=== PATIENT | male | born 2000 | race American Indian/Alaskan Native ===

== ENCOUNTER 2018-04-24 23:59 | Emergency (ER) | payer MEDICAID, OTHER ==
[2018-04-25 01:16] LABS: Amorphous Crystals,Urine 1+; Bilirubin,Urine NEG (Negative); Blood,Urine NEG (Negative); Color,Urine Yellow (Yellow); Mucus,Urine FEW /HPF; Urobilinogen,Urine < 2.0 mg/dL (<2.0)
[2018-04-25 01:19] LABS: Basophils % (Auto) 0.4 % (0.0-1.8); Eosinophils % (Auto) 0.4 % (0.0-4.3); Hematocrit 43.7 % (35.5-45.6); Hemoglobin 14.9 gm/dl (11.8-15.2); Lymphocytes # (Auto) 1.4 K/mm3 (1.2-5.4); Lymphocytes % (Auto) 31.2 % (13.4-35.0); Mean Corpuscular HGB Conc 34 % (32-34); Mean Corpuscular Volume 83 fl (84-94); Monocytes # (Auto) 0.4 K/mm3 (0.0-0.8); Monocytes % (Auto) 10.1 % (0.0-7.3); Platelet Count 135 K/mm3 (140-440); Red Blood Count 5.29 M/mm3 (3.65-5.03); Red Cell Distribution Width 13.6 % (13.2-15.2)
[2018-04-25 01:20] LABS: WBC,Urine < 1.0 /HPF (0.0-6.0)
[2018-04-25 01:29] LABS: Amphetamine Screen,Urine PRESUMPTIVE NEGATIVE; Benzodiazepines Screen,Urine PRESUMPTIVE NEGATIVE; Cocaine Screen,Urine PRESUMPTIVE NEGATIVE; Methadone Screen,Urine PRESUMPTIVE NEGATIVE; Opiate Screen,Urine PRESUMPTIVE NEGATIVE
[2018-04-25 01:40] LABS: BUN/Creatinine Ratio 6; Blood Urea Nitrogen 6 mg/dL (9-20); Hemolysis Index 9
[2018-04-25 01:49] LABS: Cannabinoid Screen,Urine PRESUMPTIVE POSITIVE
--- NOTE | 2018-04-25 02:57 | Emergency Department Report ---
HPI - General Chief Complaint: Psych Time Seen by Provider: 04/25/18 02:44 - HPI HPI: Room 18 The patient is a 17-year-old male presenting with a chief complaint of insomnia and disorganized thoughts. Patient has history of depression and anxiety but fox s been off his medication (trazodone) since 2017 secondary to loss of insurance. Family states for the past 4-5 days patient has not been in to sleep and she is noticed he's began having disorganized thoughts. When asked to give an example family states the patient told her to "watch him or someone was going to start shooting at him." She states the patient's thoughts are racing and sometimes j umbled. Patient denies suicidal or homicidal ideations. Patient denies auditory or visual hallucinations Location: Mental health Duration: 4-5 days Quality: Disorganized Severity: Moderate Modifying factors: [see above] Context: [see above] Mode of transportation: [not driving] ED Past Medical Hx - Past Medical History Hx Psychiatric Treatment: Yes (Manic Depression, Anxiety) Additional medical history: sleeping disorder - Surgical History Past Surgical History?: No - Family History Family history: no significant - Social History Smoking Status: Current Some Day Smoker Substance Use Type: None (denies illicit drug use) - Medications Home Medications: Home Medications Medication Instructions Recorded Confirmed Last Taken Type Ondansetron [Zofran Odt] 4 mg PO TID #6 tab.rapdis 12/02/14 Unknown Rx Zolpidem [Ambien] 5 mg PO QHS PRN #10 tablet 04/25/18 Unknown Rx ED Review of Systems ROS: Stated complaint: ANXIETY Other details as noted in HPI Constitutional: no symptoms reported Eyes: denies: eye pain ENT: denies: throat pain Respiratory: no symptoms reported Cardiovascular: denies: chest pain Endocrine: no symptoms reported Gastrointestinal: denies: abdominal pain Genitourinary: denies: dysuria Musculoskeletal: denies: back pain Neurological: denies: headache Psychiatric: other (insomnia). denies: auditory hallucinations, visual hallucinations, homicidal thoughts, suicidal thoughts Physical Exam - Physical Exam Vital Signs: Vital Signs 04/25/18 00:29 Temperature 98.4 F Pulse Rate 84 Respiratory 18 Rate Blood Pressure 145/94 O2 Sat by Pulse 99 Oximetry Physical Exam: GENERAL: The patient is well-developed well-nourished []. [] HEENT: Normocephalic. Atraumatic. Extraocular motions are intact. Patient has moist mucous membranes. NECK: Supple. Trachea midline CHEST/LUNGS: Clear to auscultation. There is no respiratory distress noted. HEART/CARDIOVASCULAR: Regular. There is no tachycardia. There is no gallop rub or murmur. ABDOMEN: Abdomen is soft, nontender. Patient has normal bowel sounds. There is no abdominal distention. SKIN: There is no rash. There is no edema. There is no diaphoresis. NEURO: The patient is awake, alert, and oriented. The patient is cooperative. The patient has no focal neurologic deficits. The patient has normal speech. Cranial nerves II through XII grossly intact, no drift MUSCULOSKELETAL: There is no evidence of acute injury. ED Course Vital Signs 04/25/18 00:29 Temperature 98.4 F Pulse Rate 84 Respiratory 18 Rate Blood Pressure 145/94 O2 Sat by Pulse 99 Oximetry - Consultations Consultation #1: 04/25/18 05:32 Case discussed with mental health project management consultant Luis Carlos-patient will be given referral as an outpatient to the [facility] ED Medical Decision Making - Lab Data Result diagrams: 04/25/18 00:53 04/25/18 00:53 Laboratory Tests 04/25/18 04/25/18 04/25/18 00:46 00:46 00:53 WBC RBC Hgb Hct MCV MCH MCHC RDW Plt Count Lymph % (Auto) [place] % (Auto) Eos % (Auto) Baso % (Auto) Lymph # [place] # Eos # Baso # Seg Neutrophils % Seg Neutrophils # Sodium Potassium Chloride Carbon Dioxide Anion Gap BUN Creatinine Estimated GFR BUN/Creatinine Ratio Glucose Calcium Urine Color Yellow Urine Turbidity Cloudy Urine pH 7.0 Ur Specific [place] 1.024 Urine Protein 30 mg/dl Urine Glucose (UA) Neg Urine Ketones 20 Urine Blood Neg Urine Nitrite Neg Urine Bilirubin Neg Urine Urobilinogen < 2.0 Ur Leukocyte Esterase Neg Urine WBC (Auto) < 1.0 Urine RBC (Auto) 1.0 Amorphous Crystals 1+ Urine Mucus Few Salicylates < 0.3 L Urine Opiates Screen Presumptive negative Urine Methadone Screen Presumptive negative Acetaminophen Ur Barbiturates Screen Presumptive negative Ur Phencyclidine Scrn Presumptive negative Ur Amphetamines Screen Presumptive negative U Benzodiazepines Scrn Presumptive negative Urine Cocaine Screen Presumptive negative U Marijuana (THC) Screen Presumptive positive Drugs of Abuse Note Disclamer Plasma/Serum Alcohol 04/25/18 04/25/18 04/25/18 00:53 00:53 00:53 WBC RBC Hgb Hct MCV MCH MCHC RDW Plt Count Lymph % (Auto) [place] % (Auto) Eos % (Auto) Baso % (Auto) Lymph # [place] # Eos # Baso # Seg Neutrophils % Seg Neutrophils # Sodium 138 Potassium 3.5 L Chloride 99.9 Carbon Dioxide 25 Anion Gap 17 BUN 6 L Creatinine 1.0 Estimated GFR > 60 BUN/Creatinine Ratio 6 Glucose 181 H Calcium 9.0 Urine Color Urine Turbidity Urine pH Ur Specific [place] Urine Protein Urine Glucose (UA) Urine Ketones Urine Blood Urine Nitrite Urine Bilirubin Urine Urobilinogen Ur Leukocyte Esterase Urine WBC (Auto) Urine RBC (Auto) Amorphous Crystals Urine Mucus Salicylates Urine Opiates Screen Urine Methadone Screen Acetaminophen < 5.0 L Ur Barbiturates Screen Ur Phencyclidine Scrn Ur Amphetamines Screen U Benzodiazepines Scrn Urine Cocaine Screen U Marijuana (THC) Screen Drugs of Abuse Note Plasma/Serum Alcohol < 0.01 04/25/18 00:53 WBC 4.4 L RBC 5.29 H Hgb 14.9 Hct 43.7 MCV 83 L MCH 28 MCHC 34 RDW 13.6 Plt Count 135 L Lymph % (Auto) 31.2 [place] % (Auto) 10.1 H Eos % (Auto) 0.4 Baso % (Auto) 0.4 Lymph # 1.4 [place] # 0.4 Eos # 0.0 Baso # 0.0 Seg Neutrophils % 57.9 Seg Neutrophils # 2.5 Sodium Potassium Chloride Carbon Dioxide Anion Gap BUN Creatinine Estimated GFR BUN/Creatinine Ratio Glucose Calcium Urine Color Urine Turbidity Urine pH Ur Specific [place] Urine Protein Urine Glucose (UA) Urine Ketones Urine Blood Urine Nitrite Urine Bilirubin Urine Urobilinogen Ur Leukocyte Esterase Urine WBC (Auto) Urine RBC (Auto) Amorphous Crystals Urine Mucus Salicylates Urine Opiates Screen Urine Methadone Screen Acetaminophen Ur Barbiturates Screen Ur Phencyclidine Scrn Ur Amphetamines Screen U Benzodiazepines Scrn Urine Cocaine Screen U Marijuana (THC) Screen Drugs of Abuse Note Plasma/Serum Alcohol - Differential Diagnosis anxiety, insomnia, samina Critical care attestation.: If time is entered above; I have spent that time in minutes in the direct care of this critically ill patient, excluding procedure time. ED Disposition Clinical Impression: Insomnia Disposition: DC-01 TO HOME OR SELFCARE Is pt being admited?: No Does the pt Need Aspirin: No Condition: Stable Additional Instructions: Return to the emergency department immediately should you develop worsening sym ptoms, fever, inability to tolerate food or liquid or any other concerns. Prescriptions: Zolpidem [Ambien] 5 mg PO QHS PRN #10 tablet PRN Reason: Sleep Referrals: [facility] [Outside] - [facility] Time of Disposition: 05:33
[2018-04-25] MEDS ORDERED: AMBIEN PO ONE (05:48)
[2018-04-25 06:02] VITALS: BP 140/84
== END 2018-04-25 06:01 | disposition home or self-care (01) ==
LOC: ED 23:59
DX: G47.00 Insomnia, unspecified (principal); F31.9 Bipolar disorder, unspecified; F17.200 Nicotine dependence, unspecified, uncomplicated; F41.9 Anxiety disorder, unspecified; Z79.899 Other long term (current) drug therapy
CPT/HCPCS: 36415; 80048; 80307; 81001; 85025; 99284; G0480; 80320

== ENCOUNTER 2018-04-25 19:26 | Emergency (ER) | payer SELFPAY ==
--- NOTE | 2018-04-26 00:02 | Emergency Department Report ---
ED Psych HPI - General Chief Complaint: Psych Stated Complaint: ANXIETY Time Seen by Provider: 04/25/18 20:01 Source: patient Mode of arrival: Ambulatory - History of Present Illness Initial Comments: Patient is a 17-year-old -[place] male who was here yesterday for insomnia. Parents brought him in because he is having disorganized thoughts and increased paranoia. Patient was given a prescription for Ambien. Patient has these issues once before partially year ago after taking a synthetic marijuana. Patient currently is having a hard time giving a history and does have some flight of ideas. He states he is not having any homicidal suicidal ideations at this time. - Related Data Previous Rx's Medication Instructions Recorded Last Taken Type Ondansetron [Zofran Odt] 4 mg PO TID #6 tab.rapdis 12/02/14 Unknown Rx Zolpidem [Ambien] 5 mg PO QHS PRN #10 tablet 04/25/18 Unknown Rx Allergies Allergy/AdvReac Type Severity Reaction Status Date / Time No Known Allergies Allergy Verified 04/25/18 19:43 ED Review of Systems ROS: Stated complaint: ANXIETY Other details as noted in HPI Comment: All other systems reviewed and negative ED Past Medical Hx - Past Medical History Previous Medical History?: Yes Hx Psychiatric Treatment: Yes (Manic Depression, Anxiety) Additional medical history: sleeping disorder - Surgical History Past Surgical History?: No - Social History Smoking Status: Current Every Day Smoker Substance Use Type: None - Medications Home Medications: Home Medications Medication Instructions Recorded Confirmed Last Taken Type Ondansetron [Zofran Odt] 4 mg PO TID #6 tab.rapdis 12/02/14 04/25/18 Unknown Rx Zolpidem [Ambien] 5 mg PO QHS PRN #10 tablet 04/25/18 04/25/18 Unknown Rx ED Physical Exam - General Limitations: No Limitations General appearance: alert, in no apparent distress, anxious - Head Head exam: Present: atraumatic, normocephalic - Eye Eye exam: Present: normal appearance - ENT ENT exam: Present: mucous membranes moist - Neck Neck exam: Present: normal inspection - Respiratory Respiratory exam: Present: normal lung sounds bilaterally. Absent: respiratory distress, wheezes, rales, rhonchi - Cardiovascular Cardiovascular Exam: Present: regular rate, normal rhythm. Absent: systolic murmur, diastolic murmur, rubs, gallop - GI/Abdominal GI/Abdominal exam: Present: soft, normal bowel sounds. Absent: distended, tenderness, guarding, rebound - Rectal Rectal exam: Present: deferred - Extremities Exam Extremities exam: Present: normal inspection - Back Exam Back exam: Present: normal inspection - Neurological Exam Neurological exam: Present: alert, oriented X3 - Psychiatric Psychiatric exam: Present: normal affect, normal mood - Skin Skin exam: Present: warm, dry, intact, normal color. Absent: rash ED Course Vital Signs 04/25/18 04/25/18 19:50 21:02 Temperature 98.5 F 98.5 F Pulse Rate 71 77 Respiratory 18 18 Rate Blood Pressure 135/88 Blood Pressure 146/81 [Right] O2 Sat by Pulse 99 99 Oximetry ED Medical Decision Making - Medical Decision Making Patient's to be placed on 1013 and be evaluated for psychiatric placement. Patient is having flight of ideas and paranoid disorganized thoughts. Critical care attestation.: If time is entered above; I have spent that time in minutes in the direct care of this critically ill patient, excluding procedure time. ED Disposition Clinical Impression: Medical clearance for psychiatric admission, Paranoia, Insomnia Disposition: DC/TX-65 PSY HOSP/PSY UNIT Is pt being admited?: No Does the pt Need Aspirin: No Condition: Stable Time of Disposition: 00:02
[2018-04-26] MEDS ORDERED: BENADRYL PO ONE (08:19)
[2018-04-26] MEDS ORDERED: ATIVAN IM ONE (10:27)
[2018-04-26] MEDS ORDERED: GEODON IM ONE ×2 (10:28→16:41)
[2018-04-26 10:45] LABS: Bilirubin,Urine NEG (Negative); Blood,Urine NEG (Negative); Color,Urine Straw (Yellow); Protein,Urine <15 mg/dL mg/dL (Negative); RBC,Urine < 1.0 /HPF (0.0-6.0); Urobilinogen,Urine < 2.0 mg/dL (<2.0); WBC,Urine < 1.0 /HPF (0.0-6.0)
[2018-04-26 10:59] LABS: Amphetamine Screen,Urine PRESUMPTIVE NEGATIVE; Benzodiazepines Screen,Urine PRESUMPTIVE NEGATIVE; Cocaine Screen,Urine PRESUMPTIVE NEGATIVE; Methadone Screen,Urine PRESUMPTIVE NEGATIVE; Opiate Screen,Urine PRESUMPTIVE NEGATIVE
[2018-04-26 11:40] LABS: Cannabinoid Screen,Urine PRESUMPTIVE POSITIVE
[2018-04-26 12:14] LABS: Basophils % (Auto) 0.4 % (0.0-1.8); Eosinophils % (Auto) 0.2 % (0.0-4.3); Hematocrit 47.6 % (35.5-45.6); Hemoglobin 15.8 gm/dl (11.8-15.2); Lymphocytes % (Auto) 23.6 % (13.4-35.0); Mean Corpuscular HGB Conc 33 % (32-34); Mean Corpuscular Volume 84 fl (84-94); Monocytes # (Auto) 0.4 K/mm3 (0.0-0.8); Platelet Count 149 K/mm3 (140-440); Red Blood Count 5.66 M/mm3 (3.65-5.03); Red Cell Distribution Width 13.9 % (13.2-15.2)
[2018-04-26 12:27] LABS: BUN/Creatinine Ratio 8; Blood Urea Nitrogen 7 mg/dL (9-20); Calcium 9.6 mg/dL (8.4-10.2); Hemolysis Index 13
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
[2018-04-26] MEDS ORDERED: WATER FOR INJ (PF) ONE (16:41)
[2018-04-26] MEDS: VISTARIL PO SCH ×2 (17:00→20:01)
[2018-04-26] MEDS: PAXIL PO SCH ×2 (17:03→18:53)
[2018-04-27] MEDS ORDERED: BENADRYL PO ONE ×2 (03:22)
[2018-04-27] MEDS: VISTARIL PO SCH ×3 (07:43→20:40)
[2018-04-27] MEDS ORDERED: BENADRYL IM ONE (10:50)
[2018-04-27] MEDS ORDERED: BENADRYL ONE (10:54)
[2018-04-27] MEDS: PAXIL PO SCH (11:11)
[2018-04-27] MEDS ORDERED: GEODON IM ONE (11:59)
[2018-04-27] MEDS ORDERED: WATER FOR INJ Sterile (PF) 10 ML ONE (12:00)
--- NOTE | 2018-04-27 14:21 | Progress Note ---
Subjective - Reason for Consult Consult date: 04/27/18 Reason for consult: Psychiatric Follow-up Evaluation - Chief Complaint Chief complaint: "Not too good" Patient is a 17-year-old -Citizen Of [place] male who presented to the emergency room for bizarre behavior. The patient was seen 24 hours prior for insomnia in the ER. Today the patient is anxious and paranoid during the assessment. It took him several minutes to talk with the provider about his concerns. Patient can be seen pacing back and forth. Mood instability noted. Patient endorses auditory hallucinations of Nolan telling him to stay strong. Patient denies VH's. Patient reports appropriate appetite and decrease sleep. Per RNJacqui, patient's mom state that he responds well to Zyprexa and Trazodone. Mental Status Exam - Vital signs Last Vital Signs Temp 99.7 F H 04/27/18 08:00 Pulse 108 H 04/27/18 08:00 Resp 18 04/27/18 08:00 BP 134/77 04/27/18 08:00 Pulse Ox 99 04/27/18 08:00 - Exam Narrative exam: Mental Status Exam Appearance: anxious Behavior: regular eye contact Speech: regular rate and tone Mood: " not too good"; anxious, paranoid Affect: flat Thought Process: circumstantial Thought Content: denies SI/HI's; + paranoid delusions toward staff and auditory hallucinations of Nolan. Denies VH's Motor Activity: ambulatory Cognition: A/O x3 Insight: variable to fair Judgment: fair Assessment and Plan Impression: PTSD. Unspecified Anxiety DO. Psychosis Unspecified. Today the patient was anxious and paranoid during the assessment. Also, patient endorses auditory hallucinations of Nolan telling him to stay strong. Denies VH's. DDx: MDD with psychotic features Recommendation/Plan: 1. Reevaluate 1013 in 24 hours. 2. Continue Paxil 20 mg PO daily for Anxiety/PTSD. Discussed possible suicidality/Medication induced samina with the patient reference Paxil. 3. Start Zyprexa 5mg po QHS mood/psychosis. Discussed metabolic side effects of medications. Patient verbalizes understanding. Disposition: Will refer to inpatient psychiatric services. Staffed with Dr. Jesusita Scanlon.
[2018-04-27] MEDS ORDERED: ATIVAN IM ONE (16:23)
[2018-04-27] MEDS ORDERED: ATIVAN ONE (16:26)
[2018-04-27] MEDS ORDERED: ATIVAN IV ONE (23:04)
[2018-04-28] MEDS: VISTARIL PO SCH ×3 (09:05→20:53)
[2018-04-28] MEDS: PAXIL PO SCH ×2 (09:06→20:48)
[2018-04-28] MEDS ORDERED: HALDOL IM PRN (09:26)
[2018-04-28] MEDS ORDERED: GEODON IM ONE (09:29)
[2018-04-28] MEDS ORDERED: ATIVAN IM ONE ×2 (09:30→20:15)
[2018-04-28] MEDS ORDERED: WATER FOR INJ (PF) ONE (09:36)
--- NOTE | 2018-04-28 10:09 | Progress Note ---
Subjective - Reason for Consult Consult date: 04/28/18 Reason for consult: Psychiatry Follow-up - Chief Complaint Chief complaint: "It's not right" 17-year-old -Syrian male who presented to the emergency room for bizarre behavior. Today the patient is paranoid during the assessment. The patient's presentation is different than my previous assessment (04/26/2018). The patient is hyper buddhist and had to be asked several times the same questions to get a response from him, possibly responding to some type of stimuli. He had to be redirected to keep him on topic. He denies SI/HI's and AVH's. No indications of side effects of his medications. Mental Status Exam - Vital signs Last Vital Signs Temp 98.6 F 04/28/18 09:11 Pulse 137 H 04/28/18 09:11 Resp 11 L 04/28/18 09:11 BP 136/88 04/28/18 09:11 Pulse Ox 99 04/28/18 09:11 - Exam Narrative exam: MSE: Appearance: calm Behavior: regular eye contact Speech: regular rate and tone Mood: preoccupied Affect: flat Thought Process: somewhat disorganized Thought Content: denies SI/HI's and AVH's, hyper buddhist, paranoia Motor Activity: ambulatory Cognition: A/O x3 Insight: poor Judgment: poor Assessment and Plan Impression: PTSD. Unspecified Anxiety DO. Additional Dx: Unspecified Psychosis. Today the patient is paranoid during the assessment. DDx: MDD, Bipolar DO with psychosis Recommendation/Plan: Continue 1013, Paxil 20 mg PO daily for Anxiety/PTSD, and Zyprexa 5 mg PO HS for psychosis/mood. Discussed possible suicidality/Medication induced samina with the patient reference Paxil. Attempted to discuss possible metabolic side effects of Zyprexa with the patient. Dispo: The patient was referred to inpatient psy services Will staff with Dr Barrientos.
[2018-04-28] MEDS ORDERED: ATIVAN ONE (20:51)
[2018-04-29] MEDS ORDERED: GEODON IM ONE ×2 (07:50→08:20)
[2018-04-29] MEDS: VISTARIL PO SCH ×3 (09:00→20:31)
[2018-04-29] MEDS: PAXIL PO SCH (10:02)
--- NOTE | 2018-04-29 14:49 | Progress Note ---
Subjective - Reason for Consult Consult date: 04/29/18 Reason for consult: Psychiatry Follow-up - Chief Complaint Chief complaint: "I don;t know what to think" 17-year-old -Mongolian male who presented to the emergency room for bizarre behavior. Today the patient is still paranoid during the assessment. he could not explain how he feel when asked. He did state that he feel "boxed in" because of his thoughts. Per collateral information from his mother Carly Dubon, she stated that her son has experienced psychosis in the past. She stated he is known to be extremely paranoid and manic. She stated that he has taken Trazodone and Zyprexa that was effective. The patient denies SI/HI's and VH's. He would not confirm or deny AH's. He denies any side effects of his medications. i Mental Status Exam - Vital signs Last Vital Signs Temp 98.7 F 04/29/18 01:50 Pulse 74 04/29/18 01:50 Resp 18 04/29/18 01:50 BP 117/75 04/29/18 01:50 Pulse Ox 99 04/29/18 01:50 - Exam Narrative exam: MSE: Appearance: calm Behavior: regular eye contact Speech: regular rate and tone Mood: preoccupied, anxious Affect: congruent to mood Thought Process: circumstantial Thought Content: denies SI/HI's and AVH's, hyper sabianism, paranoia Motor Activity: ambulatory Cognition: A/O x3 Insight: poor Judgment: poor Assessment and Plan Impression: PTSD. Unspecified Anxiety DO. Additional Dx: Unspecified Psychosis. Today the patient is paranoid during the assessment. DDx: MDD, Bipolar DO with psychosis Recommendation/Plan: Continue 1013, Paxil 20 mg PO daily for Anxiety/PTSD, and modify Zyprexa to 5 mg PO BID for psychosis/mood, Vistaril 25 mg PO TID for anxiety, and start Trazodone 50 mg PO HS for sleep. Discussed possible suicidality/Medication induced samina with the patient reference Paxil. Discussed possible priapism with the patient reference Trazodone. Discussed possible metabolic side effects of Zyprexa with the patient. Dispo: The patient was referred to inpatient psy services Will staff with Dr Barrientos.
[2018-04-29] MEDS ORDERED: BENADRYL ONE (20:49)
[2018-04-29] MEDS ORDERED: ATIVAN ONE (20:49)
[2018-04-29] MEDS ORDERED: HALDOL ONE (20:49)
[2018-04-29] MEDS ORDERED: HALDOL IM ONE (21:16)
[2018-04-29] MEDS ORDERED: BENADRYL IM ONE (21:17)
[2018-04-29] MEDS ORDERED: ATIVAN IM ONE (21:17)
[2018-04-29] MEDS: DESYREL PO SCH (21:57)
[2018-04-30] MEDS: VISTARIL PO SCH ×3 (09:30→20:07)
--- NOTE | 2018-04-30 09:34 | Progress Note ---
Subjective - Reason for Consult Consult date: 04/30/18 Reason for consult: Psychiatry Follow-up - Chief Complaint Chief complaint: "My thoughts are over the place" 17-year-old -[place] male who presented to the emergency room for bizarre behavior. Today the patient is still paranoid during the assessment. He stated that he is experiencing "different thoughts" in his head. He could not explain in detail about the thoughts when asked because he appears preoccupied. He denies SI/HI's and VH's. He stated that he is hearing different voices intermittently. He stated that he slept "a little better" last night. Mental Status Exam - Vital signs Last Vital Signs Temp 98.4 F 04/30/18 07:39 Pulse 113 H 04/30/18 07:39 Resp 16 04/30/18 08:08 BP 122/79 04/30/18 07:39 Pulse Ox 98 04/30/18 08:08 - Exam Narrative exam: MSE: Appearance: calm Behavior: regular eye contact Speech: regular rate and tone Mood: preoccupied, anxious Affect: congruent to mood Thought Process: circumstantial Thought Content: denies SI/HI's and AVH's, paranoia Motor Activity: ambulatory Cognition: A/O x3 Insight: poor Judgment: poor Assessment and Plan Impression: PTSD. Unspecified Anxiety DO. Additional Dx: Unspecified Psychosis. Today the patient is still paranoid during the assessment. DDx: MDD, Bipolar DO with psychosis Recommendation/Plan: Continue 1013, Paxil 20 mg PO daily for Anxiety/PTSD, and Zyprexa 5 mg PO BID for psychosis/mood, Vistaril 25 mg PO TID for anxiety, and Trazodone 50 mg PO HS for sleep. Discussed possible suicidality/Medication induced samina with the patient reference Paxil. Discussed possible priapism with the patient reference Trazodone. Discussed possible metabolic side effects of Zyprexa with the patient. Dispo: The patient was accepted at [facility] pending transport time. Staffed with Dr Barrientos.
[2018-04-30] MEDS: PAXIL PO SCH (10:03)
[2018-04-30 15:01] VITALS: BP 111/74
[2018-04-30] MEDS: DESYREL PO SCH (21:44)
== END 2018-04-30 21:46 ==
LOC: ED 19:26 → EEVIPCON 19:26 → ED 04-30 21:46
DX: F22 Delusional disorders (principal); G47.00 Insomnia, unspecified; F32.9 Major depressive disorder, single episode, unspecified; F17.200 Nicotine dependence, unspecified, uncomplicated
CPT/HCPCS: 36415; 80048; 80307; 81001; 85025; 96372; 96374; 99285; J1200; J2060; J3486; J1630; Q0177

== ENCOUNTER 2019-01-31 12:37 | Emergency (ER) | payer SELFPAY ==
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
--- NOTE | 2019-01-31 15:10 | Emergency Department Report ---
HPI - General Chief Complaint: Extremity Injury, Upper Time Seen by Provider: 01/31/19 15:03 - HPI HPI: 18-year-old male presents to the emergency department with complaint of some right wrist pain after slipping and falling while running from a dog this afternoon. He fell with an outstretched right hand. He complains of some pain worse towards the ulnar side of the wrist and some mild swelling. He has used ice but otherwise has not taken anything for his symptoms prior to arrival. He is right-hand dominant. ED Past Medical Hx - Past Medical History Previous Medical History?: Yes Hx Psychiatric Treatment: Yes (Manic Depression, Anxiety) Additional medical history: sleeping disorder - Surgical History Past Surgical History?: No - Social History Smoking Status: Unknown if ever smoked Substance Use Type: Marijuana - Medications Home Medications: Home Medications Medication Instructions Recorded Confirmed Last Taken Type Ondansetron [Zofran Odt] 4 mg PO TID #6 tab.rapdis 12/02/14 04/25/18 Unknown Rx Zolpidem [Ambien] 5 mg PO QHS PRN #10 tablet 04/25/18 04/25/18 Unknown Rx diphenhydrAMINE [Benadryl CAP] 25 mg PO QHS 04/29/18 04/29/18 Unknown History traZODone 50 mg PO QHS 04/29/18 04/30/18 Unknown History Ibuprofen [Motrin 800 MG tab] 800 mg PO Q8HR PRN #20 tablet 01/31/19 Unknown Rx ED Review of Systems ROS: Stated complaint: RT WRIST INJURY Other details as noted in HPI Comment: All other systems reviewed and negative Musculoskeletal: joint swelling, arthralgia Skin: denies: rash, lesions Neurological: denies: numbness, paresthesias Physical Exam - Physical Exam Vital Signs: Vital Signs 01/31/19 13:31 Temperature 99.2 F Pulse Rate 87 Respiratory 18 Rate Blood Pressure 133/76 O2 Sat by Pulse 96 Oximetry Physical Exam: GENERAL: The patient is well-developed well-nourished. HENT: Normocephalic. Atraumatic. Patient has moist mucous membranes. EYES: Extraocular motions are intact. NECK: Supple. Trachea is midline. ABDOMEN: There is no abdominal distention. SKIN: Skin is warm and dry. NEURO: The patient is awake, alert, and oriented. The patient is cooperative. Normal speech. MUSCULOSKELETAL: There is some tenderness to palpation to the right wrist but no obvious deformity. Decreased range of motion of the right wrist secondary to pa in. +2 over 4 radial pulse and capillary refill less than 2 seconds to the affected right upper extremity. ED Course Vital Signs 01/31/19 13:31 Temperature 99.2 F Pulse Rate 87 Respiratory 18 Rate Blood Pressure 133/76 O2 Sat by Pulse 96 Oximetry ED Medical Decision Making - Radiology Data Radiology results: image reviewed interpreted by me: X-ray of the right wrist does not show any fracture, dislocation or any acute process. - Medical Decision Making This [id number] male presents with some right wrist pain after a slip and fall with an outstretched right hand. He is neurovascularly intact. X-ray does not show any fracture or dislocation. Placed in a splint and given a referral for orthopedics. - Differential Diagnosis fracture, dislocation, sprain, strain Critical Care Time: No Critical care attestation.: If time is entered above; I have spent that time in minutes in the direct care of this critically ill patient, excluding procedure time. ED Disposition Clinical Impression: Right wrist pain Fall Qualifiers: Encounter type: initial encounter Qualified Code(s): W19.XXXA - Unspecified fall, initial encounter Disposition: TO HOME OR SELFCARE Is pt being admited?: No Condition: Stable Instructions: Wrist Injury (ED) Additional Instructions: Please follow-up with a primary care physician. I'm giving you a referral for a local orthopedist, Dr. Ramirez, to follow up regarding your wrist pain and injury. Remain in the splint until follow-up with the orthopedist. Return to the emergency Department with any worsening of your symptoms or any acute distress. Prescriptions: Ibuprofen [Motrin 800 MG tab] 800 mg PO Q8HR PRN #20 tablet PRN Reason: Pain , Severe (7-10) Referrals: CHEIKH RAMIREZ MD [Staff Physician] - 2-3 Days Time of Disposition: 15:11
[2019-01-31 15:20] VITALS: BP 130/77
--- NOTE | 2019-01-31 15:47 | XRay Report ---
RIGHT WRIST 4 VIEWS INDICATION: wrist pain. COMPARISON: Radiographs 10/25/2012 FINDINGS: No acute, displaced fracture or dislocation is seen. Carpal alignment is within normal limits. No sig nificant soft tissue swelling. IMPRESSION: 1. No acute findings. Signer Name: Cameron Eaton MD Signed: 01/31/2019 3:43 PM Workstation Name: [id number]
== END 2019-01-31 15:16 | disposition home or self-care (01) ==
LOC: ED 12:37
DX: M25.531 Pain in right wrist (principal); F41.9 Anxiety disorder, unspecified; F12.10 Cannabis abuse, uncomplicated; Z79.899 Other long term (current) drug therapy; Z88.8 Allergy status to other drugs, medicaments and biological substances

== ENCOUNTER 2019-03-06 15:24 | Emergency (ER) | payer OTHER ==
[2019-03-06] MEDS ORDERED: diphenhydrAMINE 50 MG/ML VIAL IM ONE ×2 (15:37→21:03)
[2019-03-06] MEDS ORDERED: HALOPERIDOL LACTATE 5 MG/1 ML INJ IM ONE ×2 (15:37→21:03)
[2019-03-06] MEDS ORDERED: LORazepam 2 MG/ML VIAL IV ONE (15:38)
[2019-03-06] MEDS ORDERED: diphenhydrAMINE 50 MG/ML VIAL ONE (15:40)
[2019-03-06] MEDS ORDERED: HALOPERIDOL LACTATE 5 MG/1 ML INJ ONE (15:40)
[2019-03-06] MEDS ORDERED: LORazepam 2 MG/ML VIAL ONE (15:40)
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
[2019-03-06 18:16] LABS: Basophils % (Auto) 0.5 % (0.0-1.8); Eosinophils % (Auto) 0.1 % (0.0-4.3); Hemoglobin 13.9 gm/dl (11.8-15.2); Lymphocytes # (Auto) 1.5 K/mm3 (1.2-5.4); Lymphocytes % (Auto) 26.3 % (13.4-35.0); Mean Corpuscular HGB Conc 33 % (32-34); Mean Corpuscular Volume 84 fl (84-94); Monocytes # (Auto) 0.6 K/mm3 (0.0-0.8); Monocytes % (Auto) 10.9 % (0.0-7.3); Platelet Count 121 K/mm3 (140-440); Red Blood Count 5.02 M/mm3 (3.65-5.03); Red Cell Distribution Width 14.4 % (13.2-15.2)
[2019-03-06 18:34] LABS: BUN/Creatinine Ratio 8; Blood Urea Nitrogen 9 mg/dL (9-20); Hemolysis Index 8
[2019-03-06] MEDS ORDERED: ARIPIPRAZOLE 20 MG PO SCH (21:00)
[2019-03-06] MEDS ORDERED: ARIPiprazole 10 MG TAB PO SCH (21:00)
[2019-03-06] MEDS ORDERED: LORazepam 2 MG/ML VIAL IM ONE (21:15)
[2019-03-06 21:29] LABS: Bilirubin,Urine NEG (Negative); Blood,Urine MOD (Negative); Color,Urine Amber (Yellow); Mucus,Urine 3+ /HPF; Urobilinogen,Urine < 2.0 mg/dL (<2.0)
[2019-03-06 21:30] LABS: Amphetamine Screen,Urine PRESUMPTIVE NEGATIVE; Benzodiazepines Screen,Urine PRESUMPTIVE NEGATIVE; Cocaine Screen,Urine PRESUMPTIVE NEGATIVE; Methadone Screen,Urine PRESUMPTIVE NEGATIVE; Opiate Screen,Urine PRESUMPTIVE NEGATIVE
[2019-03-06] MEDS: ARIPiprazole 10 MG TAB PO SCH (21:31)
[2019-03-06] MEDS: traZODone 50 MG TAB PO SCH (21:31)
[2019-03-06] MEDS: diphenhydrAMINE 25 MG CAP PO SCH (21:32)
[2019-03-06] MEDS ORDERED: NON-FORMULARY EACH (Trazodone 50 MG) PO SCH (22:00)
[2019-03-06 22:02] LABS: Cannabinoid Screen,Urine PRESUMPTIVE POSITIVE
[2019-03-07] MEDS: risperiDONE 0.25 MG TAB PO SCH ×2 (11:11→22:27)
[2019-03-07] MEDS: LORazepam 2 MG/ML VIAL IM PRN ×2 (11:20→15:55)
[2019-03-07] MEDS: diphenhydrAMINE 50 MG/ML VIAL IM PRN ×2 (11:20→15:55)
--- NOTE | 2019-03-07 11:38 | Consultation ---
History of Present Illness - Reason for Consult Consult date: 03/07/19 Reason for consult: psychiatric assessment - Chief Complaint Chief complaint: unable to assess the patient. He is currently in seclusion. Per the patient chart,the patient exited room demanding to be moved. Pt was asked by staff to return to room 14 and pt refused. Staff pushed button for CODE SCHWARZ. Pt walked through ER and through FT. Pt was intercepted by security and and escorted back to room 14 and door was locked. Pt standing in room quietly. Medications and Allergies Allergies Allergy/AdvReac Type Severity Reaction Status Date / Time olanzapine [From Zyprexa] Allergy Severe Rash Verified 03/07/19 09:22 Home Medications Medication Instructions Recorded Confirmed Last Taken Type diphenhydrAMINE [Benadryl CAP] 25 mg PO QHS 04/29/18 03/06/19 Unknown History traZODone 50 mg PO QHS 04/29/18 03/06/19 Unknown History ARIPiprazole [Abilify] 20 mg PO DAILY 03/06/19 03/06/19 Unknown History Active Meds: Active Medications Aripiprazole (Aripiprazole) 20 mg PO 2100 [facility] Last Admin: 03/06/19 21:31 Dose: 20 mg Documented by: Diphenhydramine HCl (Benadryl) 25 mg PO QHS [facility] Last Admin: 03/06/19 21:32 Dose: Not Given Documented by: Diphenhydramine HCl (Benadryl) 50 mg IM Q6H PRN PRN Reason: Agitation Last Admin: 03/07/19 11:20 Dose: 50 mg Documented by: Lorazepam (Ativan) 2 mg IM Q8H PRN PRN Reason: Agitation Last Admin: 03/07/19 11:20 Dose: 2 mg Documented by: Risperidone (Risperdal) 0.5 mg PO BID [facility] Last Admin: 03/07/19 11:11 Dose: 0.5 mg Documented by: Trazodone HCl (Desyrel) 50 mg PO QHS [facility] Last Admin: 03/06/19 21:31 Dose: 50 mg Documented by: Mental Status Exam - Vital signs Last Vital Signs Temp 98.3 F 03/07/19 07:00 Pulse 92 H 03/07/19 07:00 Resp 18 03/07/19 07:00 BP 132/83 03/07/19 07:00 Pulse Ox 98 03/07/19 07:00 Results Result Diagrams: 03/06/19 17:59 03/06/19 17:59 Abnormal lab results 03/06/19 03/06/19 03/06/19 Range/Units 17:59 17:59 17:59 Plt Count 121 L (140-440) K/mm3 [place] % (Auto) 10.9 H (0.0-7.3) % Carbon Dioxide 21 L (22-30) mmol/L Glucose 74 L (75-100) mg/dL Ur Specific [place] (1.003-1.030) Urine WBC (Auto) (0.0-6.0) /HPF Salicylates < 0.3 L (2.8-20.0) mg/dL Acetaminophen (10.0-30.0) ug/mL 03/06/19 03/06/19 Range/Units 17:59 21:04 Plt Count (140-440) K/mm3 [place] % (Auto) (0.0-7.3) % Carbon Dioxide (22-30) mmol/L Glucose (75-100) mg/dL Ur Specific [place] 1.032 H (1.003-1.030) Urine WBC (Auto) 25.0 H (0.0-6.0) /HPF Salicylates (2.8-20.0) mg/dL Acetaminophen < 5.0 L (10.0-30.0) ug/mL All other labs normal.
[2019-03-07] MEDS ORDERED: ZIPRASIDONE MESYLATE 20 MG VIAL IM ONE (16:36)
[2019-03-07] MEDS: ARIPiprazole 10 MG TAB PO SCH (20:34)
[2019-03-07] MEDS ORDERED: HALOPERIDOL LACTATE 5 MG/1 ML INJ IM ONE (21:22)
[2019-03-07] MEDS ORDERED: LORazepam 2 MG/ML VIAL IM ONE (21:22)
[2019-03-07] MEDS ORDERED: diphenhydrAMINE 50 MG/ML VIAL IM ONE (21:22)
[2019-03-07] MEDS: traZODone 50 MG TAB PO SCH (22:26)
[2019-03-07] MEDS: diphenhydrAMINE 25 MG CAP PO SCH (22:26)
[2019-03-08] MEDS: diphenhydrAMINE 50 MG/ML VIAL IM PRN ×2 (05:46→15:25)
[2019-03-08] MEDS: LORazepam 2 MG/ML VIAL IM PRN ×2 (05:46→15:25)
[2019-03-08] MEDS ORDERED: LIDOCAINE-MPF (1%) 10 MG/1 ML VIAL 5 ML INFILTRATI ONE (07:19)
[2019-03-08] MEDS ORDERED: AZITHROMYCIN 250 MG TAB PO ONE (07:19)
[2019-03-08] MEDS: risperiDONE 0.25 MG TAB PO SCH (09:46)
[2019-03-08] MEDS ORDERED: hydrOXYzine HCL 100 MG/2 ML INJ IM ONE (12:54)
[2019-03-08] MEDS ORDERED: HALOPERIDOL LACTATE 5 MG/1 ML INJ IM PRN (16:42)
[2019-03-08] MEDS ORDERED: KETAMINE 500 MG/5 ML VIAL MDV ONE (16:50)
[2019-03-08] MEDS ORDERED: KETAMINE 200 MG/20 ML INJ MDV IM ONE (16:59)
[2019-03-08] MEDS ORDERED: SODIUM CHLORIDE 0.9% 1000 ML 1,000 ML IV ONE (17:20)
[2019-03-08] MEDS ORDERED: ONDANSETRON 4 MG/2 ML INJ IV ONE (17:20)
[2019-03-08] MEDS ORDERED: HALOPERIDOL LACTATE 5 MG/1 ML INJ IM ONE (17:39)
[2019-03-08] MEDS: diphenhydrAMINE 25 MG CAP PO SCH (23:39)
[2019-03-08] MEDS: DIVALPROEX DR 250 MG TAB PO SCH (23:39)
[2019-03-08] MEDS: traZODone 50 MG TAB PO SCH (23:40)
[2019-03-08] MEDS: risperiDONE 1 MG TAB PO SCH (23:40)
[2019-03-09] MEDS: LORazepam 2 MG/ML VIAL IM PRN (06:58)
[2019-03-09] MEDS: diphenhydrAMINE 50 MG/ML VIAL IM PRN (06:58)
[2019-03-09 08:20] VITALS: BP 137/83
[2019-03-09] MEDS: ARIPiprazole 10 MG TAB PO SCH ×2 (09:18→11:05)
[2019-03-09] MEDS ORDERED: ZIPRASIDONE MESYLATE 20 MG VIAL IM ONE ×2 (09:59→10:30)
[2019-03-09] MEDS: DIVALPROEX DR 250 MG TAB PO SCH (10:28)
[2019-03-09] MEDS: risperiDONE 1 MG TAB PO SCH (11:04)
== END 2019-03-09 11:00 ==
LOC: EEVIPCON 15:24 → ED 15:24
DX: F32.9 Major depressive disorder, single episode, unspecified (principal); F41.9 Anxiety disorder, unspecified; G47.9 Sleep disorder, unspecified; F12.10 Cannabis abuse, uncomplicated; Z79.899 Other long term (current) drug therapy
CPT/HCPCS: 36415; 80048; 80307; 81001; 85025; 87086; 93005; 93010; 96372; 96374; 96375; 99285; J0696; J1200; J1630; J2060; J2405; J3410; J3486; J7030; 80320; G0480

== ENCOUNTER 2020-12-25 17:58 | Emergency (ER) | payer SELFPAY ==
[2020-12-25 19:49] LABS: Alanine Aminotransferase 28 units/L (7-56); Albumin 4.1 g/dL (3.9-5); BUN/Creatinine Ratio 11; Blood Urea Nitrogen 10 mg/dL (9-20); Calcium 9.5 mg/dL (8.4-10.2); Hemolysis Index 21
[2020-12-25 19:55] LABS: Basophils % (Auto) 0.4 % (0.0-1.8); Eosinophils # (Auto) 0.1 K/mm3 (0.0-0.4); Eosinophils % (Auto) 1.2 % (0.0-4.3); Hematocrit 39.4 % (35.5-45.6); Hemoglobin 12.8 gm/dl (11.8-15.2); Lymphocytes # (Auto) 1.7 K/mm3 (1.2-5.4); Mean Corpuscular HGB Conc 33 % (32-34); Mean Corpuscular Volume 82 fl (84-94); Monocytes # (Auto) 0.7 K/mm3 (0.0-0.8); Monocytes % (Auto) 11.4 % (0.0-7.3); Platelet Count 147 K/mm3 (140-440); Red Cell Distribution Width 14.4 % (13.2-15.2)
[2020-12-25] MEDS ORDERED: WATER FOR INJ Sterile (PF) 10 ML ONE (19:57)
[2020-12-25] MEDS ORDERED: ZIPRASIDONE MESYLATE 20 MG VIAL IM ONE ×2 (19:57→20:12)
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
[2020-12-25 23:52] LABS: Bilirubin,Urine NEG (Negative); Blood,Urine NEG (Negative); Color,Urine Straw (Yellow); Mucus,Urine FEW /HPF; Protein,Urine <15 mg/dL mg/dL (Negative); Urobilinogen,Urine < 2.0 mg/dL (<2.0)
[2020-12-26] LABS: Amphetamine Screen,Urine PRESUMPTIVE NEGATIVE; Benzodiazepines Screen,Urine PRESUMPTIVE NEGATIVE; Cannabinoid Screen,Urine PRESUMPTIVE NEGATIVE; Cocaine Screen,Urine PRESUMPTIVE NEGATIVE; Methadone Screen,Urine PRESUMPTIVE NEGATIVE; Opiate Screen,Urine PRESUMPTIVE NEGATIVE
[2020-12-26] MEDS ORDERED: ZIPRASIDONE MESYLATE 20 MG VIAL IM ONE ×2 (05:00→14:47)
[2020-12-26] MEDS ORDERED: LORazepam 2 MG/ML VIAL IM SCH (05:15)
[2020-12-26] MEDS ORDERED: LORazepam 2 MG/ML VIAL IM ONE (05:48)
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
[2020-12-26] MEDS ORDERED: DIVALPROEX DR 125 MG TAB PO SCH (10:00)
[2020-12-26] MEDS ORDERED: PALIPERIDONE ER 3 MG TAB PO SCH (10:00)
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
[2020-12-26 12:09] VITALS: BP 117/90
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
[2020-12-26] MEDS ORDERED: traZODone 50 MG TAB PO SCH (22:00)
== END 2020-12-26 16:49 ==
LOC: EEVIPCON 17:58 → ED 17:58
DX: F29 Unspecified psychosis not due to a substance or known physiological condition (principal); Z88.5 Allergy status to narcotic agent; F12.90 Cannabis use, unspecified, uncomplicated; F41.9 Anxiety disorder, unspecified; Z20.822 Contact with and (suspected) exposure to COVID-19
CPT/HCPCS: 36415; 80053; 80307; 81001; 85025; 96372; 99285; J2060; J3486; U0003; 80320; G0480